=== PATIENT | male | born 1995 | race African-American/Black ===

== ENCOUNTER 2021-09-08 16:08 | Emergency (ER) | payer OTHER ==
[2021-09-08 16:20] VITALS: BP 152/98
--- NOTE | 2021-09-08 16:45 | ED Physician Documentation ---
PD HPI HEENT - Stated complaint Stated Complaint: HEADACHE,MUCUS - Chief complaint Chief Complaint: Heent - History obtained from History obtained from: Patient - Additional information Additional information: The patient comes to the emergency department chief complaint of sinus congestion and green nasal drainage for the last 3 weeks. He states he has pain in his frontal sinus area that keeps him from sleeping. It is worse if he lays down or bends over. Patient states he had fevers for so is not sure if he still having them. He has already been on decongestants. He thinks it started with a viral URI but all the other symptoms of gone away and he just continues to have thick green drainage that comes out both the front of his nose and that he coughs out. No other complaints at this time. Patient is otherwise healthy. He states that [place] was on board ship when he first became ill and others had the same symptoms that he started with, but have gotten better. His COVID test was negative. Review of Systems Ten Systems: 10 systems reviewed and negative Constitutional: reports: Reviewed and negative Eyes: reports: Reviewed and negative Ears: reports: Reviewed and negative Nose: reports: Congestion, Other (Nasal drainage) Throat: reports: Reviewed and negative Cardiac: reports: Reviewed and negative Respiratory: reports: Reviewed and negative GI: reports: Reviewed and negative : reports: Reviewed and negative Skin: reports: Reviewed and negative Musculoskeletal: reports: Reviewed and negative Neurologic: reports: Reviewed and negative Psychiatric: reports: Reviewed and negative Endocrine: reports: Reviewed and negative Immunocompromised: reports: Reviewed and negative PD PAST MEDICAL HISTORY - Present Medications Home Medications: Ambulatory Orders Medication Instructions Recorded Confirmed Azithromycin [Zithromax] 0 mg PO DAILY #6 tablet 09/08/21 Fexofenadine/Pseudoephedrine 1 each PO DAILY PRN #7 tab 09/08/21 [Dali-D 24 Hour Tablet] SUMAtriptan [Imitrex] 25 mg PO BID PRN #12 tablet 09/08/21 - Allergies Allergies/Adverse Reactions: Allergies Allergy/AdvReac Type Severity Reaction Status Date / Time No Known Drug Allergies Allergy Verified 09/08/21 16:14 PD ED PE NORMAL - Vitals Vital signs reviewed: Yes - General General: Alert and oriented X 3, No acute distress, Well developed/nourished - HEENT HEENT: Atraumatic, PERRL, EOMI, Moist mucous membranes, Other (Mild tenderness bilateral frontal and maxillary sinuses.) - Neck Neck: Supple, no meningeal sign - Respiratory Respiratory: No respiratory distress - Derm Derm: Normal color, Warm and dry, No rash - Extremities Extremities: No deformity, No edema - Neuro Neuro: Alert and oriented X 3, physician relations representative 2-12 intact, Normal speech - Psych Psych: Normal mood, Normal affect Results - Vitals Vitals: Vital Signs - 24 hr 09/08/21 16:15 Temperature 37.2 C Heart Rate 77 Respiratory 16 Rate Blood Pressure 152/98 H O2 Saturation 100 Oxygen O2 Source Room air PD MEDICAL DECISION MAKING - ED course Complexity details: considered differential, d/w patient ED course: The patient had had ongoing, thick, green drainage for 3 weeks now despite resolution of all other viral Symptoms. He had tender sinuses as well as significant pain component, and I felt that he should be treated with antibiotics. These were prescribed as well as decongestant. Departure - Departure Disposition: 01 Home, Self Care Clinical Impression: Sinusitis Qualifiers: Sinusitis location: frontal Chronicity: acute Recurrence: non-recurrent Qualified Code(s): J01.10 - Acute frontal sinusitis, unspecified Condition: Stable Instructions: ED Headache Sinus, ED Sinusitis Abx Tx Prescriptions: Fexofenadine/Pseudoephedrine [Dali-D 24 Hour Tablet] 1 each PO DAILY PRN #7 tab PRN Reason: Nasal Congestion SUMAtriptan [Imitrex] 25 mg PO BID PRN #12 tablet PRN Reason: Headache Azithromycin [Zithromax] 0 mg PO DAILY #6 tablet
== END 2021-09-08 17:24 | disposition home or self-care (01) ==
LOC: ED 16:08
DX: J01.10 Acute frontal sinusitis, unspecified (principal)
CPT/HCPCS: 99283